=== PATIENT | female | born 2000 | race Two or more races ===

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

== ENCOUNTER 2021-01-14 18:25 | Emergency (ER) | payer BC, OTHER ==
[~2021-01-14] VITALS: Ht 167.6 cm; Wt 86.2 kg
[2021-01-14] MEDS ORDERED: CYCLOBENZAPRINE HCL 10 MG TABLET PO ONE (18:45)
[2021-01-14] MEDS ORDERED: KETOROLAC TROMETHAMINE 30 MG INJ IM ONE (18:45)
[2021-01-14] MEDS ORDERED: KETOROLAC TROMETHAMINE 30 MG INJ ONE (18:49)
[2021-01-14] MEDS ORDERED: CYCLOBENZAPRINE HCL 10 MG TABLET ONE (18:49)
[2021-01-14] MEDS ORDERED: CYCL10TA9 PO (18:55)
[2021-01-14 19:17] VITALS: BP 132/84
== END 2021-01-14 19:20 | disposition home or self-care (01) ==
LOC: ER 18:26
DX: M54.5 Low back pain (principal); S13.4XXD Sprain of ligaments of cervical spine, subsequent encounter; V43.52XD Car driver injured in collision with other type car in traffic accident, subsequent encounter
CPT/HCPCS: 96372; 99283; J1885; A4663

== ENCOUNTER 2021-02-08 06:58 | Emergency (ER) | payer BC, OTHER ==
[~2021-02-08] VITALS: Ht 167.6 cm; Wt 81.6 kg
[~2021-02-08 06:58] MED LIST: CYCL10TA9 PO
--- NOTE | 2021-02-08 07:32 | NUR ---
at bedside for assessment
[2021-02-08] MEDS ORDERED: GABA-536 PO (07:38)
[2021-02-08] MEDS ORDERED: ONDA4TAB11 PO (07:38)
[2021-02-08] MEDS: LIDOCAINE 5% PATCH TD ONE (07:51)
[2021-02-08] MEDS: DEXAMETHASONE SOD PHOSPHATE 4 MG INJ IM ONE (07:51)
--- NOTE | 2021-02-08 07:51 | NUR ---
patient complaints of chronic back pain, medications administered as prescribed by MD, Patient discharged to home in stable condition. Able to ambulate with steady gait, no signs of acute distress. Written and verbal after care instructions given. Patient verbalizes understanding of instructions. Stressed follow up or return to ER for worsening s/s.
[2021-02-08] MEDS ORDERED: DEXAMETHASONE SOD PHOSPHATE 4 MG INJ ONE (07:53)
[2021-02-08 07:54] VITALS: BP 125/75
[2021-02-08] MEDS ORDERED: LIDOCAINE 5% PATCH TD ONE (07:54)
== END 2021-02-08 07:55 | disposition home or self-care (01) ==
LOC: ER 07:03
DX: M54.40 Lumbago with sciatica, unspecified side (principal)
CPT/HCPCS: 96372; 99283; J1100; A4663

== ENCOUNTER 2021-04-06 19:34 | Emergency (ER) | payer BC, OTHER ==
[~2021-04-06] VITALS: Ht 167.6 cm; Wt 81.6 kg
[~2021-04-06 19:34] MED LIST changes: +GABA-536 PO; +ONDA4TAB11 PO
[2021-04-06] MEDS ORDERED: LIDOCAINE VISCUS 2% 15 ML UDC MM ONE (20:00)
--- NOTE | 2021-04-06 20:14 | NUR ---
pt to CT
[2021-04-06] MEDS ORDERED: LIDOCAINE VISCUS 2% 15 ML UDC ONE (20:40)
[2021-04-06] MEDS ORDERED: PROCHLORPERAZINE MALEATE 5 MG TABLET PO ONE (20:45)
[2021-04-06] MEDS ORDERED: HYDROCODONE/APAP 5-325MG TABLET PO ONE (20:45)
[2021-04-06] MEDS ORDERED: PROCHLORPERAZINE MALEATE 5 MG TABLET ONE (20:53)
[2021-04-06] MEDS ORDERED: HYDROCODONE/APAP 5-325MG TABLET ONE (20:54)
[2021-04-06] MEDS ORDERED: PROC-11 PO (21:12)
[2021-04-06] MEDS ORDERED: OXYC-128 PO (21:12)
[2021-04-06 21:28] VITALS: BP 135/63
--- NOTE | 2021-04-06 21:28 | NUR ---
Patient discharged to home in stable condition. Written and verbal after care instructions given. Patient verbalizes understanding of instructions. Stressed follow up or return to ER for worsening s/s.
== END 2021-04-06 21:29 | disposition home or self-care (01) ==
LOC: ER 19:34
DX: S02.11GA Other fracture of occiput, right side, initial encounter for closed fracture (principal); S06.0X9A Concussion with loss of consciousness of unspecified duration, initial encounter; S40.211A Abrasion of right shoulder, initial encounter; V48.4XXA Person boarding or alighting a car injured in noncollision transport accident, initial encounter; Y93.39 Activity, other involving climbing, rappelling and jumping off; Y92.411 Interstate highway as the place of occurrence of the external cause
CPT/HCPCS: 70450; 72125; 99285; J8499; A4663

== ENCOUNTER 2021-04-14 02:17 | Emergency (ER) | payer BC, OTHER ==
[~2021-04-14] VITALS: Ht 167.6 cm; Wt 81.6 kg
[~2021-04-14 02:17] MED LIST changes: +OXYC-128 PO; +PROC-11 PO
[2021-04-14] MEDS ORDERED: OXYC-128 PO (02:46)
[2021-04-14] MEDS ORDERED: KETOROLAC TROMETHAMINE 60 MG INJ IM ONE ×2 (03:00→03:03)
[2021-04-14 03:07] VITALS: BP 121/82
== END 2021-04-14 03:08 | disposition home or self-care (01) ==
LOC: ER 02:33
DX: S06.0X0D Concussion without loss of consciousness, subsequent encounter (principal); S02.91XD Unspecified fracture of skull, subsequent encounter for fracture with routine healing; M54.50 Low back pain, unspecified; S40.211D Abrasion of right shoulder, subsequent encounter; S30.0XXD Contusion of lower back and pelvis, subsequent encounter; V48.4XXD Person boarding or alighting a car injured in noncollision transport accident, subsequent encounter
CPT/HCPCS: 96372; 99283; J1885; A4663

== ENCOUNTER 2021-05-21 01:49 | Emergency (ER) | payer BC, OTHER ==
[~2021-05-21] VITALS: Ht 157.5 cm; Wt 82.6 kg
--- NOTE | 2021-05-21 02:10 | NUR ---
Dr. Escalona at bedside for MSE.
--- NOTE | 2021-05-21 02:15 | NUR ---
Patient eloped after being told by that she will not get a prescription for narcotics.
== END 2021-05-21 02:28 | disposition left against medical advice (07) ==
LOC: ER 01:51
DX: M25.511 Pain in right shoulder (principal); M79.601 Pain in right arm; Z53.29 Procedure and treatment not carried out because of patient's decision for other reasons; M54.9 Dorsalgia, unspecified
CPT/HCPCS: A4663